=== PATIENT | male | born 1950 | race Caucasian/White ===

== ENCOUNTER → 2018-04-22 11:00 | Outpatient (CLI) | payer MEDICARE, OTHER, SELFPAY ==
--- NOTE | 2018-04-22 | DI.MRI.S_ITS ---
PROCEDURE: MR LUMBAR SPINE WO CON INDICATIONS: LUMBAR SPINE PAIN TECHNIQUE: Noncontrast sagittal T1 spin echo and T2 fast echo, sagittal STIR, axial T1 and T2 fast spin echo through the lumbar spine. In cases with scoliosis, additional coronal T2 fast spin echo may be performed. COMPARISON: None. FINDINGS: Image quality: Excellent. Alignment and Curvature: No plain films are available for comparison, for numbering purposes. Thus, for the purposes of this examination, 5 lumbar type vertebral bodies will be presumed, as denoted on the montage panel. This should be confirmed and correlated with plain films, prior to any lumbar spinal intervention. There is moderate leftward curvature of the mid lumbar spine. There is mild grade 1 retrolisthesis of L1 on L2 and L2 on L3. Mild grade 1 anterolisthesis of L3 on L4. Bone Marrow: Marrow is of normal overall signal. No acute vertebral body compression fractures. Moderate reactive signal within the endplates adjacent to the L2-L3 intervertebral disc. Mild reactive signal within the endplates adjacent to the L1-L2 intervertebral disc. Spinal Cord: Conus medullaris terminates at the upper L1 level. Visualized cord demonstrates normal signal and size. Paraspinous Soft Tissues: No paravertebral masses. 40 mm diameter parapelvic cyst within the left interpolar kidney. L1-L2: Moderate disc height loss and desiccation. Moderate diffuse disc bulge. Mild bilateral facet and ligament flavum hypertrophy. Mild epidural lipomatosis. Mild canal stenosis. Mild left and moderate right subarticular foraminal stenosis. L2-L3: Severe disc height loss and desiccation. Moderate diffuse disc bulge/osteophyte with superimposed right far lateral broad-based protrusion/osteophyte, and left posterolateral protrusion. Mild bilateral facet and ligament flavum hypertrophy. Mild epidural lipomatosis. Mild canal stenosis. Mild foraminal stenosis bilaterally. L3-L4: Mild disco loss and desiccation. Moderate diffuse disc bulge. Moderate facet hypertrophy. Moderate epidural lipomatosis. Mild ligamentum flavum hypertrophy. Severe canal stenosis. Mild left and moderate right subarticular foraminal stenosis. L4-L5: Mild disco loss and desiccation. Mild diffuse disc bulge. Moderate bilateral facet hypertrophy. Mild epidural lipomatosis and ligament flavum hypertrophy. Mild canal stenosis. Mild foraminal stenosis bilaterally. L5-S1: Mild disco loss and desiccation. Mild diffuse disc bulge. Mild bilateral facet hypertrophy. Mild canal stenosis. No foraminal stenosis. IMPRESSION: 1. 5 lumbar type vertebral bodies were presumed for the current report. Plain films of the lumbar spine are recommended for confirmation, prior to any lumbar spinal intervention. 2. Multilevel degenerative disc and facet disease, as well as ligamentum flavum hypertrophy and epidural lipomatosis. 3. Multilevel canal stenoses, worst at L3-L4, where there is severe canal stenosis. 4. Multilevel foraminal stenoses, worst at L1-L2 and L3-L4 on the right where there are moderate foraminal stenoses present. Dictated by: Yi Trevino M.D. on 04/22/2018 at 11:44 Approved by: Yi Trevino M.D. on 04/22/2018 at 11:49
== END ==
PROVIDERS: PCP Physician Assistant Medical; Visit Provider Orthopaedic Surgery Orthopaedic Surgery of the Spine
DX: M54.5 Low back pain (principal); M51.36 Other intervertebral disc degeneration, lumbar region; M48.061 Spinal stenosis, lumbar region without neurogenic claudication; M51.37 Other intervertebral disc degeneration, lumbosacral region; M48.07 Spinal stenosis, lumbosacral region; E88.2 Lipomatosis, not elsewhere classified
CPT/HCPCS: 72148

== ENCOUNTER → 2022-02-06 09:07 | Outpatient (CLI) | payer MEDICARE, OTHER, SELFPAY ==
--- NOTE | 2022-02-06 | DI.RAD.S_ITS ---
PROCEDURE: FL BARIUM SWALLOW W SPEECH INDICATIONS: DYSPHAGIA/HX DIFFICULT INTUBATION COMPARISON: None. TECHNIQUE: Examination was conducted in conjunction with speech pathology per standard protocol. In the lateral projection, filming was performed of the patient swallowing. AP projection filming may also be performed with patient swallowing. COMPARISON: FINDINGS: Function: The oral preparatory phase appears normal, with proper containment. The subsequent oral propulsive phase, pharyngeal phase, and esophageal phase of swallowing also appear normal with all proffered substances. No laryngotracheal penetration or aspiration. No substantial vallecular pooling. A 13 mm barium tablet passed promptly from the oropharynx through the gastroesophageal junction. Morphology: No cricopharyngeal bar is identified. IMPRESSION: 1. No tracheal aspiration visualized during the exam. 2. Please see the speech pathologist report for additional details. Dictated by: Aman Dye M.D. on 02/06/2022 at 11:08 Approved by: Aman Dye M.D. on 02/06/2022 at 11:11
--- NOTE | 2022-02-07 12:43 | ST.SWALLOW ---
Visit Care Team Role Provider Type Leonor Rider PA-C Primary Care Provider Non-Staff Specialty: Medical Address: [address] [place] [address] [address], [place], [address] Email: Saleem Alatorre MD Attending Provider Physician Referring Provider Specialty: Ear, Nose, Throat Address: [address] [place] [address] [place], [address] Email: [email or web address] Modified Barium Swallow Study SQUAD BOSS Modified Barium Swallow Study Start: 02/06/22 17:58 Freq: Status: Active Protocol: Document 02/06/22 17:58 LNK (Rec: 02/06/22 18:29 LNK [id number]) Modified Barium Swallow Study Total Time Visit Start Time 09:30 Visit Stop Time 10:00 Total Visit Minutes [address] Alatorre Reason for Referral dysphagia Setting Setting Outpatient Care Patient Information Identification Type Date of Patient History Pt was seen for a Modified Barium Swallow Study (MBSS) at the referral of Dr. Alatorre, ent. According to the pt and Dr. Alatorre's report, the pt described a difficult intubation for a surgical procedure he had in September 2021. pt reported hoarseness, a sore throat for several weeks and difficulty with swallowing pills since that time. Pt noted that he experiences a sensation of globus near the sternal arch. He primarily has difficulty with pills, but also reports difficulty with some foods. Pt stated no difficulty with liquids. He stated he has not choked when he has this globus sensation. Subjective Observations Pt was seated in the fluoroscopy chair with directions and procedure described. Pt agreed to proceed. Patient Positioning Position View Lat-A/P Imaging Lateral View Textures Administered Trials Presented Thin Liquid via Spoon,Thin Liquid via Cup,Pudding Thick Liquid via Spoon,Regular Textures,Barium Tablet Oral Phase Source: MBSIMP (TM) (C) Bolus Specific Scoring Grid Lip Closure No Impairment (WNL) Tongue Control During Bolus Hold No Impairment (WNL) Bolus Prep/Mastication No Impairment (WNL) Bolus Transport/Lingual Motion No Impairment (WNL) A/P Lingual Propulsion Delay No Oral Residue WFL Nasal Regurgitation No Additional Oral Phase Observations Oral structures nad function WNL. Oral phase of swallow demonstrated mastication WNL. Bolus control and AP transition WNL as well Pharyngeal Phase Source: MBSIMP (TM) (C) Bolus Specific Scoring Grid Delayed Initiation of Pharyngeal Swallow No Soft Palate Elevation No Impairment (WNL) Tongue Base Strength/Range of Motion Mild Impairment Residue Along the Tongue Base Yes Clearance of Residue Along Tongue Base Minimal Impairment Laryngeal Elevation Mild Impairment Anterior Hyoid Movement Mild Impairment Epiglottic Range of Motion Mild Impairment Vallecular Residue Yes: across all trials; increased with solids Clearance of Vallecular Residue Mild Impairment Laryngeal Vestibular Closure WFL Pharyngeal Stripping Wave Mild Impairment Posterior Pharyngeal Wall Residue Yes Clearance of Posterior Pharyngeal Wall Minimal Impairment Residue Upper Esophageal Sphincter Opening Mild Impairment Residue in the Pyriform Sinuses Yes Clearance of Residue in the Pyriform Minimal Impairment Sinuses Esophageal Clearance Upright Position No Impairment (WNL) Pharyngoesophageal Backflow Observed No Additional Pharyngeal Phase Observations Mild tongue base weakness observed with reduced laryngohyoid movement. Epiglottal inversion was complete with adequate laryngeal seal; however, the tip of the epiglottis was consistently curled up against the posterior pharyngeal wall , resulting in valecullar pooling. Weakened constriction of the posterior wall also contributed to the valecullar pooling. Pharyngeal residue/ pooling was observed at the valeculla, aerepiglottal folds to the pyriform sinuses and along the posterior pharyngeal wall. No overt laryngeal penetration or aspiration was observed The UES appeared to be reduced in extension and duration. Solids required 3+ swallows to clear to esophagus . Osteophytes observed at C4- C6 altered and narrowed the esophagus from expected but did not impede flow through upper esophagus. A/P View Textures Administered Trials Presented Barium Tablet A/P View Observations Pharyngeal Contraction No Impairment (WNL) Vocal Fold Function Good Esophageal Function No Impairment (WNL) Esophageal Clearance Upright Position No Impairment (WNL) Esophageal Observations Esophageal Function 11mm barium tablet in AP view was observed to clear the esophagus int stomach within 30 seconds (WNL) Clinical Impressions Dysphagia Type Oropharyngeal swallow appeared to be WFL. Findings No overt s/sx aspiration. Pt reports difficulty swallowing pills and solid foods. Possible contributing factors include valecullar pooling, reduced UES extension and duration and/or narrowed upper esophagus re: osteophytes C4- C6. The esophagus was observed to empty completely in a timely manner. Recommended to pt to cut medications in half, if possible, and to use a carrier such as yogurt, pudding, etc to ease swallow. Patient Appropriate for Therapy No Recommendations Diet Comments continue with current diet; cut pills in half if possible; use carrier Aspiration Precautions Recommended Precautions Alternate Liquids/Solids,Small Bites/Sips Treatment Plan Recommended Referrals GI Consult Compensatory Strategies Recommendations Sitting Upright (90 deg),Small Bites and Sips,Alternate Liquids/Solids
== END ==
PROVIDERS: PCP Physician Assistant Medical; Referring Provider Otolaryngology; Visit Provider Otolaryngology
DX: R13.19 Other dysphagia (principal); R49.0 Dysphonia; Z91.89 Other specified personal risk factors, not elsewhere classified
CPT/HCPCS: 74230; 92611